=== PATIENT | female | born 1970 | race Caucasian/White ===

== ENCOUNTER 2016-11-12 17:07 | Emergency (ER) ==
--- NOTE | 2016-11-12 19:03 | PROVIDER DOCUMENTATION ---
HPI-Musculoskeletal Pain/Inj - GENERAL Chief Complaint: Fall Stated Complaint: FALL/BILA KNEE PAIN Time Seen by Provider: 11/12/16 18:18 Source: patient - HX OF PRESENT ILLNESS-MUSKULOSKELTAL Nature of Presenting Problem: Pt is a 46 y/o F c chief complaint of bilat knee pain and L elbow pain p fall yesterday. Pt states she was stepping over a baby gate in her house and her R foot caught on the top of the gate and she fell on her L knee and L elbow. Pt has a h/o R total knee replacement. On arrival, pt is ambulatory but states it is painful to walk. Pt is in minimal distress. Review of Systems - Adult - REVIEW OF SYSTEMS - ADULT Constitutional: reports: no symptoms reported. denies: chills, fatique Eyes: reports: no symptoms reported. denies: blurred vision, double vision Ears, Nose, Mouth & Throat: reports: no symptoms reported. denies: ear pain, nose pain Cardiovascular: reports: no symptoms reported. denies: chest pain, orthopnea Respiratory: reports: no symptoms reported. denies: cough, shortness of breath Gastrointestinal: reports: no symptoms reported. denies: abdominal pain, nausea Genitourinary: reports: no symptoms reported. denies: dysuria, hematuria Musculoskeletal: reports: bone pain, joint pain, joint swelling, muscle aches Integumentary: reports: no symptoms reported. denies: itching, rash Neurological: reports: no symptoms reported. denies: numbness, paresthesia Psychiatric: reports: no symptoms reported. denies: anxiety, emotional problems Endocrine: reports: no symptoms reported. denies: cold intolerance, heat intolerance Hematologic/Lymphatic: reports: no symptoms reported. denies: blood clots, low blood count Allergic/Immunologic: reports: no symptoms reported. denies: allergic reactions , eczema All Other Systems: Reviewed and Negative Past History - Adult - PAST MEDICAL HISTORY-ADULT Review of Records: reports: Old Records Reviewed, Nursing Assessment Review, Medications Reviewed, Social history reviewed & non-contributory. Major Childhood Illnesses: reports: denies history Cardiovascular: reports: heart valve problem (MVP) Respiratory: reports: denies history Gastrointestinal: reports: denies history Obstetrical/Gynecological: reports: denies history Genitourinary: reports: denies history Musculoskeletal: reports: denies history Neurological: reports: denies history Endocrine/Immune: reports: denies history Other Conditions: reports: denies history - PRIOR SURGERIES/PROCEDURES Surgical/Procedure History: reports: none - IMMUNIZATION STATUS Childhood Immunizations: See Nurse Assessment Flu Vaccine: See Nurse Assessment - FAMILY HISTORY Family History: reviewed, not pertinent - SOCIAL HISTORY Smoking: denies Substance Use: none/never Alcohol Use Frequency: never Living Situation: family Physical Exam-Injury Related - Physical Exam-Injury Related Initial Vital Signs Reviewed: Yes General Appearance: appears well, alert, no apparent distress Eyes: PERRL/EOMI, pink conjunctivae, fundi clear, no AV nicking Head, Ears, Nose, Mouth & Throat: normocephalic/atraumatic, moist mucous membranes, normal ENT inspection Neck: non-tender, full range of motion, supple Respiratory: chest non-tender, lungs clear, normal breath sounds Cardiovascular: normal peripheral pulses, regular rate, rhythm, no edema Abdominal Exam: normal bowel sounds, non tender, soft Lymphatic: no adenopathy Back Exam: normal inspection, no CVA tenderness, no vertebral tenderness Extremity: tenderness (R and L anterior knee, limited ROM due to pain and swelling; mild tenderrness to palpation of L elbow. No limitations in ROM.) Integumentary: normal color, warm/dry, blanching Neurologic: grossly normal, no motor/sensory deficits Psych/Mental Status: normal mood/affect, normal thought content, normal thought process, oriented x 3 - Glascow Coma Score Best Eye Response ([facility]): (4) open spontaneously Best Verbal Response ([facility]): (5) oriented Best Motor Response ([place]ora): (6) obeys commands Progress - PLAN OF CARE/RESULTS Progress/Plan/Lab Results: Orders Category Date Time Status [place] Wrap Application DIRECTED Care 11/12/16 19:28 Active ELBOW COMPLETE LEFT [RAD] Stat Exams 11/12/16 18:56 Taken KNEE 3 VIEWS LEFT [RAD] Stat Exams 11/12/16 18:56 Taken KNEE 3 VIEWS RIGHT [RAD] Stat Exams 11/12/16 18:56 Taken Vital Signs - 24 hr 11/12/16 17:30 Temperature 98 F Pulse Rate 84 Respiratory 18 Rate Blood Pressure 132/75 O2 Sat by Pulse 99 Oximetry - XRAY 1 XRAY: Bilateral XRAY Study: Knee Impression: Abnormal (R knee - TKA in place and well alligned, petalla intact; L knee - severe arthritic changes, patella intact) 2 XRAY: Left XRAY Study: Elbow Impression: Normal XRAY Interpretation: no fx, no dislocation Departure - Departure Time of Disposition Order: 19:25 DIAGNOSIS: Fall Qualifiers: Encounter type: initial encounter Qualified Code(s): W19.XXXA - Unspecified fall, initial encounter Knee pain, bilateral Qualifiers: Chronicity: acute Qualified Code(s): M25.561 - Pain in right knee Elbow contusion Qualifiers: Encounter type: initial encounter Laterality: left Qualified Code(s): S50.02XA - Contusion of left elbow, initial encounter Disposition: HOME 01 Certified Medical Emergency: Emergent Condition: Stable Additional Instructions: ED Follow Up Instructions: You have been treated by a care provider in the Emergency Department. These instructions are being provided to you so you can have an understanding of how to care for yourself upon discharge. Upon discharge from the Emergency Department, you are responsible for making arrangements for follow-up care by a physician of your choice. Take all prescribed medications as directed. Return to the Emergency Department immediately for any new or worsening symptoms. You may call the Physician Referral phone number at [phone] to obtain a list of Physicians who are taking new patients. Prescriptions: Ibuprofen [Motrin] 800 mg PO Q8H PRN PRN #20 tablet PRN Reason: inflammation Hydrocodone/APAP 7.5 mg/325 mg [[place]-7.5] 1 each PO Q6H PRN PRN #14 tablet PRN Reason: Pain Omeprazole [Prilosec] 20 mg PO DAILY@0700 #20 capsule Referrals: Daryn Krishnamurthy [Primary Care Provider] - Rayray Burgess MD [STAFF PHYSICIAN] - Instructions: Knee Pain, Fall Prevention and Home Safety, [id number] Attestation - Physician/ DEMOND Attestation Patient care was provided by Advanced Practice Provider:: Yes Advanced Practice Provider:: Kelvin Do Advanced Practice Provider documentation review:: The Mid-level provider documentation, treatment plan and medical decision making was reviewed by the physician who agrees with all treatment and medical decision making by the [facility].
[2016-11-12 20:12] VITALS: BP 135/80
--- NOTE | 2016-11-13 07:47 | Diag Imaging Result Document ---
PROCEDURE NAME: KNEE 3 VIEWS LEFT - 11/12/2016 LEFT KNEE THREE VIEWS: FINDINGS: There patellofemoral joint space narrowing with bone spurs to the patella. There is also bone spurring to the femoral condyles and tibial plateau. No fracture. No dislocation. IMPRESSION: No acute bony injury.
--- NOTE | 2016-11-13 07:58 | Diag Imaging Result Document ---
PROCEDURE NAME: ELBOW COMPLETE LEFT - 11/12/2016 LEFT ELBOW, 3 VIEWS: COMPARISON: None. FINDINGS: Positioning on the lateral view is suboptimal. There is no obvious fracture or dislocation. There are slight degenerative osteophytes at the epicondyle. IMPRESSION: No acute disease.
--- NOTE | 2016-11-13 08:13 | Diag Imaging Result Document ---
PROCEDURE NAME: KNEE 3 VIEWS RIGHT - 11/12/2016 RIGHT KNEE, THREE VIEWS: FINDINGS: There has been prior orthopedic placement of the right knee. No evidence of loosening. Good alignment of the femoral and tibial component. No fracture. No dislocation. IMPRESSION: No acute abnormality.
== END 2016-11-12 20:12 | disposition home or self-care (01) ==
LOC: ED 17:07
DX: S50.02XA Contusion of left elbow, initial encounter (principal); M25.562 Pain in left knee; M25.561 Pain in right knee; M25.522 Pain in left elbow; M79.1 Myalgia; M25.462 Effusion, left knee; M25.461 Effusion, right knee; Z79.899 Other long term (current) drug therapy; Z96.651 Presence of right artificial knee joint; W01.0XXA Fall on same level from slipping, tripping and stumbling without subsequent striking against object, initial encounter